=== PATIENT | female | born 1980 | race African-American/Black ===

== ENCOUNTER 2021-11-16 10:24 | Emergency (ER) | payer MEDICARE, SELFPAY ==
--- NOTE | 2021-11-16 10:35 | ED.SKABFB ---
HPI - Skin/Abscess/Foreign Bdy General Chief complaint: Skin/Abscess/Foreign Body Stated complaint: hand peeling Time Seen by Provider: 11/16/21 10:37 Source: patient and RN notes reviewed Mode of arrival: ambulatory Limitations: no limitations History of Present Illness HPI narrative: 41 year old female presents with concern for itching and peeling of bilateral hands. She reports symptoms started 1 week ago with itching and then her hands started peeling. Reports they continue to peel leaving the skin underneath tender. She reports she has been using Eucerin cream without relief. She reports a history of eczema, reports she typically gets it between her first and second digits, however she has never had it manifest in this way. She denies any new personal care or household products, medicines. She denies swollen lips, swollen tongue, trouble breathing. MD complaint: other (skin peeling) Related Data Allergies Allergy/AdvReac Type Severity Reaction Status Date / Time benztropine Allergy Unknown Unknown Verified 11/16/21 10:38 gabapentin Allergy Unknown Unknown Verified 11/16/21 10:38 Review of Systems Review of Systems: CONSTITUTIONAL: Denies malaise, chills, sweats, or fever. EYES: Denies redness, or discharge. ENT: Denies rhinorrhea, congestion, swollen lips, swollen tongue CARDIOVASCULAR: Denies chest pain, palpitations, or edema. RESPIRATORY: Denies cough or dyspnea. GASTROINTESTINAL: Denies abdominal pain, nausea, vomiting SKIN: Reports peeling skin on bilateral hands MUSCULOSKELETAL: Denies joint pain or myalgia. NEUROLOGIC: Denies headache. All systems reviewed & are unremarkable except as noted in HPI and below PMFSH Family History Family History (Updated 02/21/14 @ 07:13 by DOCTOR UNKNOWN) Sibling Asthma Mother Family history of chronic obstructive pulmonary disease Grandparent Family history of malignant neoplasm of thyroid Other Family history of malignant melanoma Social History Social History Smoking status: Former smoker Smoking end date: 06/27/12 Comments At time of signature, agree with nursing past medical, surgical, social and family history. There is no relevant family history pertinent to the presenting complaint Exam Narrative: GENERAL: Well-appearing, well-nourished, and in no acute distress. HEAD: Normocephalic, atraumatic. EYES: PERRLA, conjunctivae clear ENT: Mucous membranes moist. NECK: Supple. No lymphadenopathy CHEST: Clear to auscultation. No respiratory distress. HEART: Regular rate and rhythm. SKIN: Warm, dry. Palmar aspect of hands noted to have peeling skin throughout, bilaterally. No vesicles, lacerations, abrasions, bleeding papules noted NEURO: Alert and oriented x3. PSYCH: Normal mood and affect Course Course Emergency Course: Patient is aware of diagnosis, understands and agrees to treatment plan. Anticipatory guidance given. Patient agrees to follow-up as directed and is aware of reasons to seek care at the emergency department. Portions of this record may have been created with voice recognition software Level of Care: Express Care Visit Vital Signs Vital signs: Reviewed. MDM - Skin/Abscess/Foreign Bdy MDM Narrative Medical decision making narrative: Does not appear at this time to be erythema multiforme, bullous, SJS, TEN; no evidence at this time to suggest RMSF, endocarditis or Lyme disease; patient looks well, nontoxic and is tolerating oral intake; no neurologic signs or symptoms; no headache, photophobia or neck pain; afebrile; appropriate for initial outpatient treatment; discussed the importance of follow-up, patient agrees; question, viral exanthema, contact dermatitis, allergic dermatitis, eczema, urticaria, scalded skin syndrome. No soft palate or uvula edema, no tongue, lip edema or other mucosal involvement, no respiratory compromise, no stridor, no wheezing, no wheezing, no history of syncope, no hypotension, no nausea, vomiting, or diarrh
[2021-11-16 10:37] VITALS: BP 130/68; PULSE 81; RESP 16; TEMP 36.2; O2SAT 100
[2021-11-16 10:40] VITALS: BP 130/68; PULSE 81; RESP 16; TEMP 36.2; O2SAT 100
== END 2021-11-16 10:52 | disposition home or self-care (01) ==
PROVIDERS: Emergency Provider Nurse Practitioner
DX: L30.9 Dermatitis, unspecified (principal); Z87.891 Personal history of nicotine dependence; G20 Parkinson's disease; F32.A Depression, unspecified
CPT/HCPCS: 99213; G0463

== ENCOUNTER 2022-02-23 14:57 | Outpatient (CLI) | payer MEDICARE, SELFPAY ==
[2022-02-23 16:41] LABS: Basophils Percent Auto 0.4 % (0.2-1.2); Eosinophils Absolute Auto 0.1 K/mm3 (0-0.3); Eosinophils Percent Auto 1.3 % (0-4.4); Hematocrit 41.5 % (37.0-47.0); Hemoglobin 13.8 g/dL (12.0-15.0); Immature Granulocyte Absolute 0.02 K/mm3 (0.00-0.031); Immature Granulocyte Percent A 0.3 % (0-0.5); Immature Platelet Fraction Pct 3.2 % (0.9-11.2); Lymphocytes Absolute Auto 2.17 K/mm3 (0.9-3.2); Lymphocytes Percent Auto 27.2 % (18.3-44.2); Mean Corpuscular HGB Conc 33.3 g/dl (32-36); Mean Corpuscular Hemoglobin 29.7 pg (26-34); Mean Corpuscular Volume 89.2 fl (80-100); Mean Platelet Volume 10.1 fl (7.4-10.4); Monocytes Absolute Auto 0.3 K/mm3 (0.1-0.6); Monocytes Percent Auto 4.3 % (2.6-8.5); Neutrophils Absolute Auto 5.3 K/mm3 (1.3-6.7); Neutrophils Percent Auto 66.5 % (45.5-73.1); Platelet Count Result 244 k/mm3 (150-375); Red Blood Count 4.65 M/mm3 (4.2-5.4)
[2022-02-23 16:59] LABS: Alanine Aminotransferase 12 U/L (6-35); Albumin Level 3.8 g/dL (3.5-5.1); Alkaline Phosphatase 78 U/L (38-126); Anion Gap 11 mmol/L (8-16); Aspartate Amino Transferase 17 U/L (14-36); Bilirubin,Total 0.2 mg/dL (0.2-1.3); Blood Urea Nitrogen 7 mg/dL (7-17); Calcium 8.7 mg/dL (8.4-10.2); Carbon Dioxide 22 mmol/L (22-30); Chloride 104 mmol/L (98-107); Estimated Glomerular Filt Rate > 60; Glucose 101 mg/dL (65-110); Potassium 3.4 mmol/L (3.4-5.0); Sodium 137 mmol/L (137-145)
[2022-02-23 17:26] LABS: Hemoglobin A1C 4.9 % (<5.7)
== END 2022-02-23 14:58 | disposition home or self-care (01) ==
DX: F31.89 Other bipolar disorder (principal); Z79.899 Other long term (current) drug therapy
CPT/HCPCS: 36415; 80053; 80156; 83036; 84443; 85025; 85055

== ENCOUNTER → 2022-06-22 15:04 | Outpatient (CLI) | payer MEDICARE, SELFPAY ==
--- NOTE | ~2022-06-22 | XR_ITS ---
EXAMINATION: XR lumbar spine 2-3V DATE: 06/22/2022 15:18 INDICATION: Low back pain TECHNIQUE: Anteroposterior and lateral views of the lumbar spine, and cone-down lateral view of the l umbosacral junction were obtained. COMPARISON: None. FINDINGS: Bone alignment is normal. There is no fracture. The intervertebral disc spaces are normal. 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 Anterior wedging is noted in the lower thoracic spine which is likely physiologic. There is a 6 mm stone of the left kidney lower pole. An IUD is noted in the pelvis. IMPRESSION: 1. Mild lumbar spondylosis without acute findings. Reviewed, dictated and finalized at location L. [employer]
== END ==
PROVIDERS: PCP Family Medicine; Visit Provider Family Medicine
DX: M47.896 Other spondylosis, lumbar region (principal)
CPT/HCPCS: 72100

== ENCOUNTER 2022-09-01 13:30 | Outpatient (RCR) | payer MEDICARE, SELFPAY ==
--- NOTE | 2022-07-02 16:47 | PTOPEVAL1 ---
Assessment and note entered by Mitzy Gottlieb, PT, DPT Evaluation Information Assessment Status Evaluation Diagnosis low back pain Onset 3 month Subjective Information Pt states she has had back pain for the last 3 months or so. She states the last month or so her low back has been burning when she stands for too long, this starts after about 15 mins. She states sitting helps but does not feel she generally sits right. Pt states she watches her grandchild buttonhole marker. She states she had a chronic lower back injury that intermittently with cause numbness and tingling. Pt states when he back hurts she tries to consciously tries to correct her posture. She has a history of parkinsonism Reported Pain Level Pain Score 1: Self Report Assessment PT Clinical Summary Ashlyn presents to therapy today for her initial evaluation with a diagnosis of low back pain. Today she demonstrates decreased active lumbar flexion, extension, and rotation that is limited by pain. She demonstrates weakness throughout her BLE, particularly in her hip abductors. She demonstrates poor core control during prone exercises and decreased body awareness during functional transfers. Skilled physical therapy services are indicated to address the deficits noted above, to improve functional mobility, and to manage pain. Plan of Care Interventions Check Out for Orthotic/Pr,Gait Training,Hot Pack/ Cold Pack,Manual Therapy,Neuro Re-education, Patient/Caregiver Educati,Therapeutic Activities, Therapeutic Exercise PT Services Indicated Yes Treatment Frequency and 1x/wk for 5 wks Duration These treatments will address the objective and functional deficits as defined above. The patient will be advanced safely and appropriately in order for the patient to progress towards his/her prior level of function. Additional exercises will be introduced and as well as a comprehensive home exercise program upon discharge, if needed, ?to ensure carryover of functional gains achieved in the clinic. This treatment plan has been reviewed and agreement upon by the patient.
--- NOTE | 2022-08-10 15:26 | PTOPPROG ---
Assessment and note entered by Mitzy Gottlieb, PT, DPT Evaluation Information Assessment Status Progress Diagnosis low back pain Onset 3 month Subjective Information Pt states her back pain is better for the most part. She states her back still with prolonged standing and walking. Pt reports 50-60% improvement in her overall symptoms. Pt reports excellent compliance with her HEP. Assessment PT Clinical Summary Ashlyn presents to therapy today for her progress report following 5 visits of skilled therapy to treat her low back pain. Today she demonstrates improvements in core strength and body awareness. She continues to demonstrate decreased core strength and poor movement mechanics. She reports good compliance and is progressing well towards her therapy goals. Continuation of skilled physical therapy services are indicated to continue progressing towards goals, to improve strength, to limit pain, and to promote unlimited functional mobility. Plan of Care Interventions Check Out for Orthotic/Pr,Gait Training,Hot Pack/ Cold Pack,Manual Therapy,Neuro Re-education, Patient/Caregiver Educati,Therapeutic Activities, Therapeutic Exercise PT Services Indicated Yes Treatment Frequency and 1x/wk for 4 wks Duration These treatments will address the objective and functional deficits as defined above. The patient will be advanced safely and appropriately in order for the patient to progress towards his/her prior level of function. Additional exercises will be introduced and as well as a comprehensive home exercise program upon discharge, if needed, ?to ensure carryover of functional gains achieved in the clinic. This treatment plan has been reviewed and agreement upon by the patient.
--- NOTE | 2022-09-07 14:14 | PCPTNOTE ---
Patient called and left a voicemail to cancel this date.
--- NOTE | 2022-09-16 10:15 | PTOPDC ---
Assessment and note entered by Mitzy Gottlieb, PT, DPT Evaluation Information Assessment Status Discharge - Pt Not Present Diagnosis low back pain Onset 3 month Subjective Information Pt called today to cancel her appointment d/t breaking her toe last night. Called and spoke with the patient. Both intending on discharge today as she was doing well. Assessment PT Clinical Summary Ashlyn completed 8 visits of skilled therapy from 07/02/22 to 09/01/22. She will be discharged at this time to complete her HEP. If she need additional therapy at a later date she will need a new order. Plan of Care Interventions Check Out for Orthotic/Pr,Gait Training,Hot Pack/ Cold Pack,Manual Therapy,Neuro Re-education, Patient/Caregiver Educati,Therapeutic Activities, Therapeutic Exercise PT Services Indicated Yes Treatment Frequency and discharge Duration
== END 2022-09-16 10:47 | disposition home or self-care (01) ==
LOC: ANHGOSHPT 13:30
PROVIDERS: PCP Family Medicine; Visit Provider Family Medicine
DX: M54.50 Low back pain, unspecified (principal)
CPT/HCPCS: 97110; 97112; 97161; 97530

== ENCOUNTER 2022-09-15 18:44 | Emergency (ER) | payer MEDICARE, SELFPAY ==
--- NOTE | ~2022-09-15 | XR_ITS ---
EXAM: XR foot RT min 3V DATE: 09/15/2022 19:06 HISTORY: pain, injury to 2-3rd toes . COMPARISON: None available. FINDINGS: Normal mineralization. Mildly displaced oblique fracture of the mid and distal aspect of t he right third proximal phalange. No lytic or blastic lesion. Joint spaces are maintained. Plantar an d Achilles enthesopathy. No erosion or periosteal change. Soft tissues within normal limits. IMPRESSION: Mildly displaced oblique fracture of the mid and distal aspect of the right third proxima l phalange. Reviewed, dictated and finalized at location K. IMPRESSION: Mildly displaced oblique fracture of the mid and distal aspect of t he right third proximal phalange.
[2022-09-15 18:55] VITALS: BP 115/82; PULSE 91; RESP 16; TEMP 36.3; O2SAT 100
--- NOTE | 2022-09-15 19:13 | ED.LOWEXIN ---
HPI - Extremity Injury (Lower) General Chief Complaint: Extremity Injury, Lower Stated Complaint: INJURED R FOOT/TOES Time Seen by Provider: 09/15/22 19:18 Source: patient and RN notes reviewed Mode of arrival: ambulatory Limitations: no limitations History of Present Illness HPI Narrative: 42-year-old female presents concern for foot and toe injury. Reports she accidentally kicked a chair. She reports pain the 3rd digit. Injury happened approximately 1 hour prior to arrival. MD complaint: foot injury Related Data Home Medications Medication Instructions Recorded Confirmed alprazolam 2 mg tablet (Xanax) 2 mg PO HS PRN Anxiety 11/16/21 11/16/21 lurasidone 80 mg tablet (Latuda) 80 mg PO DAILY 11/16/21 06/22/22 quetiapine 100 mg tablet (Seroquel) 100 mg PO HS 11/16/21 06/22/22 zolpidem 12.5 mg tablet,extended 12.5 mg PO HS 11/16/21 06/22/22 release,multiphase (Ambien CR) carbamazepine 200 mg 200 mg PO BID 06/22/22 06/22/22 tablet,extended release,12 hr Allergies Allergy/AdvReac Type Severity Reaction Status Date / Time benztropine Allergy Unknown Unknown Verified 09/15/22 19:20 gabapentin Allergy Unknown Unknown Verified 09/15/22 19:20 Review of Systems Review of Systems: CONSTITUTIONAL: Denies malaise, chills, sweats, or fever. SKIN: Denies rash or itching, open skin, laceration, abrasion, redness, warmth, swelling. MUSCULOSKELETAL: Reports right foot and toe pain NEUROLOGIC: Denies numbness, weakness All systems reviewed & are unremarkable except as noted in HPI and below PMFSH Past Medical History Medical History ADHD Anemia Anxiety Bipolar disorder Borderline personality disorder Endometrial hyperplasia Essential tremor GERD (gastroesophageal reflux disease) Insomnia IFEOMA (obstructive sleep apnea) Parkinsonism Seasonal allergies Family History Family History Sibling Asthma Mother Family history of chronic obstructive pulmonary disease Grandparent Family history of malignant neoplasm of thyroid Other Family history of malignant melanoma Social History Social History Smoking status: Former smoker Smoking end date: 06/27/12 Alcohol intake: current Gender identity (if verbalized by the patient): Female Spiritual care concerns: No Agree to blood products: Yes Comments At time of signature, agree with nursing past medical, surgical, social and family history. There is no relevant family history pertinent to the presenting complaint Exam Narrative: GENERAL: Well-appearing, well-nourished, and in no acute distress. HEAD: Normocephalic, atraumatic. EYES: PERRLA, conjunctivae clear NECK: Supple. CHEST: Speaks in full sentences. No respiratory distress. HEART: Regular rate and rhythm. Normal and equal peripheral pulses. EXTREMITIES: Right foot and digits have grossly normal strength and sensation, normal range of motion in all digits except the 3rd digit. No edema or ecchymosis. Normal sensation with sensitivity to light touch and pain. Third digit tenderness. No open wounds, no skin tenting, no devitalized tissue or atrophy, no trophic changes, no obvious deformity, alignment normal, nearby joints and structures intact. Distal pulses palpable and equal bilaterally, skin warm, dry, pink. Capillary refill less than 3 seconds. SKIN: Warm, dry, no rash. NEURO: Alert and oriented x3. PSYCH: Normal mood and affect Course Course Emergency Course: Patient is aware of diagnosis, understands and agrees to treatment plan. Anticipatory guidance given. Patient agrees to follow-up as directed and is aware of reasons to seek care at the emergency department. Portions of this record may have been created with voice recognition software Level of Care: Express Care Visit Vital Signs Vital signs: Vital Signs Temperature
--- NOTE | 2022-09-15 19:36 | PC.NURSE ---
+PMS POST DAVE TAPE AND POST OP SHOE
== END 2022-09-15 19:30 | disposition home or self-care (01) ==
PROVIDERS: Emergency Provider Nurse Practitioner; PCP Family Medicine
DX: S92.531A Displaced fracture of distal phalanx of right lesser toe(s), initial encounter for closed fracture (principal); Z87.891 Personal history of nicotine dependence; W22.03XA Walked into furniture, initial encounter
CPT/HCPCS: 73630; 99214; G0463

== ENCOUNTER 2022-11-06 13:00 | Outpatient (CLI) | payer MEDICARE, SELFPAY ==
[2022-11-06 13:59] LABS: Basophils Percent Auto 0.3 % (0.2-1.2); Eosinophils Absolute Auto 0.1 K/mm3 (0-0.3); Eosinophils Percent Auto 1.5 % (0-4.4); Hematocrit 39.1 % (37.0-47.0); Hemoglobin 13.5 g/dL (12.0-15.0); Immature Granulocyte Absolute 0.03 K/mm3 (0.00-0.031); Immature Granulocyte Percent A 0.3 % (0-0.5); Lymphocytes Absolute Auto 2.22 K/mm3 (0.9-3.2); Lymphocytes Percent Auto 25.5 % (18.3-44.2); Mean Corpuscular HGB Conc 34.5 g/dl (32-36); Mean Corpuscular Hemoglobin 29.7 pg (26-34); Mean Corpuscular Volume 85.9 fl (80-100); Monocytes Absolute Auto 0.4 K/mm3 (0.1-0.6); Monocytes Percent Auto 4.7 % (2.6-8.5); Neutrophils Absolute Auto 5.9 K/mm3 (1.3-6.7); Neutrophils Percent Auto 67.7 % (45.5-73.1); Platelet Count Result 347 k/mm3 (150-375); Red Blood Count 4.55 M/mm3 (4.2-5.4); Red Cell Distribution Width 12.9 % (11.5-14.5); White Blood Count 8.7 K/mm3 (4.5-10.0)
[2022-11-06 14:11] LABS: Alanine Aminotransferase 20 U/L (6-35); Albumin Level 4.1 g/dL (3.5-5.1); Alkaline Phosphatase 89 U/L (38-126); Anion Gap 9 mmol/L (8-16); Aspartate Amino Transferase 19 U/L (14-36); Bilirubin,Total 0.3 mg/dL (0.2-1.3); Blood Urea Nitrogen 6 mg/dL (7-17); Calcium 8.6 mg/dL (8.4-10.2); Carbon Dioxide 23 mmol/L (22-30); Chloride 106 mmol/L (98-107); Cholesterol 250 mg/dL (0-200); Estimated Glomerular Filt Rate > 60; Glucose 93 mg/dL (65-110); HDL Direct 66 mg/dL; Potassium 3.8 mmol/L (3.4-5.0); Sodium 138 mmol/L (137-145); Triglycerides 119 mg/dL (<150)
[2022-11-06 14:12] LABS: Hemoglobin A1C 5.1 % (<5.7)
[2022-11-06 14:20] LABS: LDL Cholesterol Direct 159 mg/dL
[2022-11-06 14:23] LABS: Rheumatoid Factor < 12.0 IU/ML (<12)
[2022-11-06 14:37] LABS: Vitamin D 25 Hydroxy 29.3 ng/mL
[2022-11-06 14:39] LABS: Erythrocyte Sedimentation Rate 15 mm/hr (0-20)
[2022-11-06 14:50] LABS: Thyroid Stimulating Hormone Reflex 0.838 uIU/mL (0.465-4.68)
[2022-11-11 08:30] LABS: Carbamazepine Tegretol 6.2 mcg/mL (4.0-12.0)
[2022-11-12 11:51] LABS: Anti Cyclic Citrullinated Pept <16 Units (<20)
== END 2022-11-06 13:01 | disposition home or self-care (01) ==
LOC: ANHLAB 13:01
PROVIDERS: PCP Family Medicine; Visit Provider Family Medicine
DX: F31.9 Bipolar disorder, unspecified (principal); E78.5 Hyperlipidemia, unspecified; F41.9 Anxiety disorder, unspecified; F90.9 Attention-deficit hyperactivity disorder, unspecified type; E53.8 Deficiency of other specified B group vitamins; Z79.899 Other long term (current) drug therapy; M25.50 Pain in unspecified joint; E55.9 Vitamin D deficiency, unspecified; G47.00 Insomnia, unspecified; G47.33 Obstructive sleep apnea (adult) (pediatric); R73.9 Hyperglycemia, unspecified
CPT/HCPCS: 36415; 80053; 80061; 80156; 82306; 82607; 83036; 84443; 85025; 85652; 86038; 86140; 86200; 86430

== ENCOUNTER 2022-12-22 17:44 | Outpatient (CLI) | payer MEDICARE, SELFPAY ==
[2022-12-22 18:08] LABS: Hematocrit 38.5 % (37.0-47.0); Mean Corpuscular HGB Conc 33.8 g/dl (32-36); Mean Corpuscular Hemoglobin 29.1 pg (26-34); Mean Corpuscular Volume 86.1 fl (80-100); Mean Platelet Volume 8.9 fl (7.4-10.4); Platelet Count Result 329 k/mm3 (150-375); Red Blood Count 4.47 M/mm3 (4.2-5.4); Red Cell Distribution Width 12.6 % (11.5-14.5); White Blood Count 10.1 K/mm3 (4.5-10.0)
[2022-12-22 18:20] LABS: Alanine Aminotransferase 22 U/L (6-35); Alkaline Phosphatase 68 U/L (38-126); Anion Gap 7 mmol/L (8-16); Aspartate Amino Transferase 20 U/L (14-36); Bilirubin,Total 0.1 mg/dL (0.2-1.3); Blood Urea Nitrogen 9 mg/dL (7-17); Calcium 8.8 mg/dL (8.4-10.2); Carbon Dioxide 26 mmol/L (22-30); Chloride 109 mmol/L (98-107); Estimated Glomerular Filt Rate > 60; Glucose 99 mg/dL (65-110); Potassium 3.7 mmol/L (3.4-5.0); Sodium 142 mmol/L (137-145)
[2022-12-22 18:57] LABS: Lithium < 0.2 mmol/L (0.6-1.2)
== END 2022-12-22 17:45 | disposition home or self-care (01) ==
LOC: ANHLAB 17:48
PROVIDERS: PCP Family Medicine
DX: Z79.899 Other long term (current) drug therapy (principal)
CPT/HCPCS: 36415; 80053; 80178; 84443; 85027

== ENCOUNTER 2023-03-11 13:38 | Outpatient (CLI) | payer MEDICARE, SELFPAY ==
[2023-03-11 14:41] LABS: Basophils Percent Auto 0.3 % (0.2-1.2); Eosinophils Absolute Auto 0.2 K/mm3 (0-0.3); Eosinophils Percent Auto 1.7 % (0-4.4); Hematocrit 40.8 % (37.0-47.0); Hemoglobin 13.6 g/dL (12.0-15.0); Immature Granulocyte Absolute 0.04 K/mm3 (0.00-0.031); Immature Granulocyte Percent A 0.4 % (0-0.5); Lymphocytes Percent Auto 22.6 % (18.3-44.2); Mean Corpuscular HGB Conc 33.3 g/dl (32-36); Mean Corpuscular Hemoglobin 29.6 pg (26-34); Mean Corpuscular Volume 88.7 fl (80-100); Monocytes Absolute Auto 0.5 K/mm3 (0.1-0.6); Monocytes Percent Auto 4.6 % (2.6-8.5); Neutrophils Absolute Auto 7.2 K/mm3 (1.3-6.7); Neutrophils Percent Auto 70.4 % (45.5-73.1); Platelet Count Result 332 k/mm3 (150-375); Red Cell Distribution Width 12.8 % (11.5-14.5); White Blood Count 10.2 K/mm3 (4.5-10.0)
[2023-03-11 14:42] LABS: Alanine Aminotransferase 39 U/L (6-35); Albumin Level 4.2 g/dL (3.5-5.1); Alkaline Phosphatase 70 U/L (38-126); Anion Gap 7 mmol/L (8-16); Aspartate Amino Transferase 37 U/L (14-36); Bilirubin,Total 0.3 mg/dL (0.2-1.3); Blood Urea Nitrogen 8 mg/dL (7-17); Calcium 8.8 mg/dL (8.4-10.2); Carbon Dioxide 23 mmol/L (22-30); Chloride 106 mmol/L (98-107); Estimated Glomerular Filt Rate > 60; Glucose 94 mg/dL (65-110); Potassium 3.5 mmol/L (3.4-5.0); Sodium 136 mmol/L (137-145)
[2023-03-11 15:08] LABS: Lithium 0.4 mmol/L (0.6-1.2)
== END 2023-03-11 13:39 | disposition home or self-care (01) ==
PROVIDERS: PCP Family Medicine
DX: F31.31 Bipolar disorder, current episode depressed, mild (principal)
CPT/HCPCS: 36415; 80053; 80178; 84443; 85025

== ENCOUNTER 2023-03-31 18:57 | Outpatient (NON) | payer MEDICARE, SELFPAY | END 2023-03-31 18:58 | disposition home or self-care (01) | LOC: ANHGOSHLAB 18:59 | PROVIDERS: PCP Family Medicine; Visit Provider Family Medicine | DX: N39.0 Urinary tract infection, site not specified (principal) | CPT/HCPCS: 87077; 87086; 87088 ==

== ENCOUNTER 2023-04-02 09:24 | Outpatient (CLI) | payer MEDICARE, SELFPAY ==
[2023-04-02 09:46] LABS: Cholesterol 180 mg/dL (0-200); HDL Direct 51 mg/dL; Triglycerides 231 mg/dL (<150)
[2023-04-02 09:57] LABS: LDL Cholesterol Direct 97 mg/dL
== END 2023-04-02 09:25 | disposition home or self-care (01) ==
LOC: ANHLAB 09:25
PROVIDERS: PCP Family Medicine; Visit Provider Nurse Practitioner Family
DX: I10 Essential (primary) hypertension (principal)
CPT/HCPCS: 36415; 80061

== ENCOUNTER 2023-05-03 11:04 | Emergency (ER) | payer MEDICARE, SELFPAY ==
[2023-05-03 11:06] VITALS: BP 128/85; PULSE 92; RESP 18; TEMP 36.4; O2SAT 100
[2023-05-03 11:38] LABS: Appearance Urine Cloudy (Clear); Bacteria Urine Rare /hpf; Bilirubin Urine Negative (Negative); Blood Urine 3+ (Negative); Color Urine Yellow (Yellow); Glucose Urine UA Negative (Negative); Ketones Urine Negative (Negative); Leukocyte Esterase Ur Trace LEU/UL (Negative); Nitrate Urine Negative (Negative); Non Pathogenic Casts 0-2; Protein Urine Negative (Negative); Specific Grav Ur 1.015 (1.001-1.035); Squamous Epithelial Cell Urine Few /hpf (Few); Urobilinogen Urine 0.2 mg/dL (<2.0); WBC Urine 0-5 /hpf
[2023-05-03 11:41] LABS: Add Urine Microscopic? YES
[2023-05-03] MEDS: SODIUM CHLORIDE 0.9% IV 1,000 ML 999 ML IV CONT (12:45)
[2023-05-03] MEDS: KETOROLAC 30 MG/ML VIAL (*BKC) IV PUSH (12:45)
[2023-05-03] MEDS: FAMOTIDINE 20 MG/2 ML VIAL IV PUSH (12:45)
[2023-05-03 13:02] LABS: Basophils Absolute Auto 0.1 K/mm3 (0.0-0.1); Basophils Percent Auto 0.5 % (0.2-1.2); Eosinophils Absolute Auto 0.2 K/mm3 (0-0.3); Eosinophils Percent Auto 1.6 % (0-4.4); Hemoglobin 14.4 g/dL (12.0-15.0); Immature Granulocyte Absolute 0.04 K/mm3 (0.00-0.031); Immature Granulocyte Percent A 0.4 % (0-0.5); Lymphocytes Absolute Auto 2.11 K/mm3 (0.9-3.2); Lymphocytes Percent Auto 20.6 % (18.3-44.2); Mean Corpuscular HGB Conc 33.5 g/dl (32-36); Mean Corpuscular Hemoglobin 28.7 pg (26-34); Mean Corpuscular Volume 85.8 fl (80-100); Monocytes Absolute Auto 0.4 K/mm3 (0.1-0.6); Monocytes Percent Auto 3.5 % (2.6-8.5); Neutrophils Absolute Auto 7.5 K/mm3 (1.3-6.7); Neutrophils Percent Auto 73.4 % (45.5-73.1); Platelet Count Result 385 k/mm3 (150-375); Red Blood Count 5.01 M/mm3 (4.2-5.4); Red Cell Distribution Width 12.7 % (11.5-14.5); White Blood Count 10.2 K/mm3 (4.5-10.0)
[2023-05-03 13:04] LABS: Alanine Aminotransferase 29 U/L (6-35); Albumin Level 4.5 g/dL (3.5-5.1); Alkaline Phosphatase 77 U/L (38-126); Anion Gap 7 mmol/L (8-16); Aspartate Amino Transferase 25 U/L (14-36); Bilirubin,Total 0.4 mg/dL (0.2-1.3); Blood Urea Nitrogen 6 mg/dL (7-17); Calcium 9.4 mg/dL (8.4-10.2); Carbon Dioxide 27 mmol/L (22-30); Chloride 105 mmol/L (98-107); Estimated CRCL calculation 109 ml/min; Estimated Glomerular Filt Rate > 60; Glucose 95 mg/dL (65-110); Lipase 59 U/L (23-300); Potassium 3.6 mmol/L (3.4-5.0); Sodium 139 mmol/L (137-145)
--- NOTE | 2023-05-03 13:39 | ED.GENADULT ---
HPI - General Adult General Chief complaint: Urogenital-Female Stated complaint: UTI Time Seen by Provider: 05/03/23 11:48 History of Present Illness HPI narrative: Ashlyn Ortez is a 42 y/o female who presents with reports of having epigastric pain yesterday with some acid reflux but seemed to get better, she wants to get that checked out, she reports she did not vomit. She comes in today with reports of having urinary frequency urgency that stated yesterday and worried she is getting a UTI. Denies flank pain/ fever/chills Related Data Home Medications Medication Instructions Recorded Confirmed alprazolam 2 mg tablet (Xanax) 2 mg PO TID Anxiety 03/31/23 03/31/23 brexpiprazole 1 mg tablet (Rexulti) 1 mg PO DAILY 03/31/23 03/31/23 lithium carbonate 300 mg capsule 300 mg PO BID 03/31/23 03/31/23 quetiapine 100 mg tablet (Seroquel) 200 mg PO HS 03/31/23 03/31/23 viloxazine 200 mg capsule,extended 600 mg PO DAILY 03/31/23 03/31/23 release 24 hr (Qelbree) Allergies Allergy/AdvReac Type Severity Reaction Status Date / Time benztropine Allergy Unknown Unknown Verified 05/03/23 11:09 gabapentin Allergy Unknown Unknown Verified 05/03/23 11:09 Review of Systems Review of Systems: CONSTITUTIONAL: Denies fever, chills, or sweats. EYES: Denies visual changes, redness, or discharge. ENT: Denies rhinorrhea, congestion, sore throat, or otalgia. CARDIOVASCULAR: Denies chest pain, palpitations, or edema. RESPIRATORY: Denies cough or dyspnea. GASTROINTESTINAL: Reports of some epigastric pain about a week ago, denies nausea, vomiting, or diarrhea. GENITOURINARY: Reports of some frequency / urgency that started yesterday SKIN: Denies rash or itching. MUSCULOSKELETAL: Denies back pain, joint pain, or myalgia. NEUROLOGIC: Denies headache, numbness, dizziness, or weakness. PSYCHIATRIC: Denies anxiety or depression PMFSH Past Medical History Medical History ADHD Anemia Anxiety Bipolar disorder Borderline personality disorder Endometrial hyperplasia Essential tremor GERD (gastroesophageal reflux disease) Insomnia IFEOMA (obstructive sleep apnea) Parkinsonism Seasonal allergies Family History Family History Sibling Asthma Mother Family history of chronic obstructive pulmonary disease Grandparent Family history of malignant neoplasm of thyroid Other Family history of malignant melanoma Social History Social History Smoking status: Current every day smoker Tobacco type: e-cigarettes/vaping Smoking end date: 06/27/12 Alcohol intake: current Substance use: current Substance use type: marijuana Lack of Transportation: No Lack of Food: Never True Current Housing: I Have Housing Concerned About Future Housing: No Difficulty Paying Gas/Electric Bills: No Difficulty Paying for Meds: No Currently Unemployed: No Education: Associate Degree Difficulty w/ Childcare or Family Care: No Living arrangements: with family Occupation/Education: other Additional occupation/education comments: Disability Gender identity (if verbalized by the patient): Female Spiritual care concerns: No Agree to blood products: Yes Exam Narrative: GENERAL: Well-appearing, well-nourished, and in no acute distress. HEAD: Normocephalic, atraumatic. EYES: PERRLA and EOMI. ENT: Nares clear, no rhinorrhea or epistaxis. Mucous membranes moist. Oropharynx without tonsillar hypertrophy exudate or other lesions. NECK: Supple. No adenopathy or masses. No carotid bruits or JVD CHEST: Clear to auscultation. No respiratory distress. No wheezes rales or rhonchi HEART: Regular rate and rhythm. No murmur heard. Normal peripheral pulses. ABDOMEN: Soft, nontender, nondistended, normal active bowel sounds. EXTREMITIES: Normal range of motion. No edema. SKIN:
[2023-05-03 13:46] VITALS: BP 123/77; PULSE 73; RESP 15; O2SAT 100
[2023-05-03] MEDS: CEPHALEXIN 500 MG CAPSULE PO (14:18)
[2023-05-03 14:22] VITALS: BP 123/79; PULSE 64; RESP 15; O2SAT 100
== END 2023-05-03 14:23 | disposition home or self-care (01) ==
PROVIDERS: Emergency Medicine; Emergency Provider Nurse Practitioner Family; PCP Family Medicine
DX: N30.01 Acute cystitis with hematuria (principal); G20.A1 Parkinson's disease without dyskinesia, without mention of fluctuations; F17.290 Nicotine dependence, other tobacco product, uncomplicated
CPT/HCPCS: 36415; 80053; 81001; 81025; 83690; 85025; 96361; 96374; 96375; 99284; A9270; J1885; J7030

== ENCOUNTER 2023-11-12 12:27 | Outpatient (CLI) | payer MEDICARE, SELFPAY ==
[2023-11-12 13:11] LABS: Basophils Percent Auto 0.3 % (0.2-1.2); Eosinophils Absolute Auto 0.2 K/mm3 (0-0.3); Eosinophils Percent Auto 1.6 % (0-4.4); Hematocrit 42.7 % (37.0-47.0); Hemoglobin 14.1 g/dL (12.0-15.0); Immature Granulocyte Absolute 0.04 K/mm3 (0.00-0.031); Immature Granulocyte Percent A 0.3 % (0-0.5); Lymphocytes Absolute Auto 2.55 K/mm3 (0.9-3.2); Lymphocytes Percent Auto 21.9 % (18.3-44.2); Mean Corpuscular Hemoglobin 27.9 pg (26-34); Mean Corpuscular Volume 84.4 fl (80-100); Mean Platelet Volume 9.3 fl (7.4-10.4); Monocytes Absolute Auto 0.5 K/mm3 (0.1-0.6); Monocytes Percent Auto 4.5 % (2.6-8.5); Neutrophils Absolute Auto 8.3 K/mm3 (1.3-6.7); Neutrophils Percent Auto 71.4 % (45.5-73.1); Platelet Count Result 376 k/mm3 (150-375); Red Blood Count 5.06 M/mm3 (4.2-5.4); Red Cell Distribution Width 14.3 % (11.5-14.5); White Blood Count 11.7 K/mm3 (4.5-10.0)
[2023-11-12 13:22] LABS: Alanine Aminotransferase 20 U/L (6-35); Albumin Level 4.5 g/dL (3.5-5.1); Alkaline Phosphatase 72 U/L (38-126); Anion Gap 8 mmol/L (4-12); Aspartate Amino Transferase 18 U/L (14-36); Bilirubin,Total 0.5 mg/dL (0.2-1.3); Blood Urea Nitrogen 6 mg/dL (7-17); Calcium 9.6 mg/dL (8.4-10.2); Carbon Dioxide 21 mmol/L (22-30); Chloride 110 mmol/L (98-107); Estimated Glomerular Filt Rate > 60; Glucose 111 mg/dL (65-110); Potassium 3.9 mmol/L (3.4-5.0); Sodium 139 mmol/L (137-145)
[2023-11-12 13:43] LABS: Lithium 0.7 mmol/L (0.6-1.2)
== END 2023-11-12 12:28 | disposition home or self-care (01) ==
PROVIDERS: PCP Family Medicine
DX: F31.31 Bipolar disorder, current episode depressed, mild (principal)
CPT/HCPCS: 36415; 80053; 80178; 84443; 85025